=== PATIENT | male | born 1995 | race Caucasian/White ===

== ENCOUNTER → 2023-02-21 18:27 | Outpatient (CLI) | payer BC, SELFPAY ==
[2023-02-21 19:46] LABS: Influenza A - CEPHEID Flu A NEGATIVE (NEGATIVE); Influenza B - CEPHEID Flu B NEGATIVE (NEGATIVE); Respiratory Syncytial Virus Negative (Negative)
[2023-02-21 19:54] LABS: COVID-19 CEPHEID 4-PLEX PCR Negative (Negative)
== END ==
PROVIDERS: Visit Provider Student in an Organized Health Care Education/Training Program
DX: H92.09 Otalgia, unspecified ear (principal); R68.83 Chills (without fever)
CPT/HCPCS: 0241U

== ENCOUNTER 2023-02-23 09:46 | Emergency (ER) | payer BC, SELFPAY ==
[2023-02-23] VITALS (10 sets, daily range): BP systolic 117–159; BP diastolic 63–98; PULSE 84–99; RESP 20; TEMP 36.4; O2SAT 95–98; BMI 34.2
--- NOTE | 2023-02-23 09:51 | DI.CT.S_ITS ---
PROCEDURE: CT ABDOMEN PELVIS W CON INDICATIONS: Right upper quadrant abdominal pain TECHNIQUE: After the administration of IV contrast, axial sections were acquired from the lung bases to the pubic symphysis. Coronal and sagittal reformats were performed. For radiation dose reduction, the following was used: automated exposure control, adjustment of mA and/or kV according to patient size. COMPARISON: None. FINDINGS: Image quality: Excellent. Lung bases: Unremarkable. Small hiatal hernia. Heart: No significant findings. ABDOMEN: Liver: Normal size. Moderate hepatic steatosis. Gallbladder: Question gallbladder sludge. No radiopaque gallstones. Biliary ducts: Unremarkable. Pancreas: Unremarkable. Spleen: Unremarkable. Adrenal Glands: Unremarkable. Kidneys and Ureters: Unremarkable. Stomach and Bowel: Stomach, small bowel loops, and colon are normal in caliber. Normal appendix. Peritoneum: No abnormal intraperitoneal fluid. No free air. Ventral Wall: No hernia. Abdominal Nodes: There is a mildly enlarged periportal lymph node measuring 1.2 x 2.5 cm. No mesenteric adenopathy by size criteria. Vessels: Aorta and inferior vena cava are normal in size. PELVIS: Pelvic Organs: Unremarkable. Bladder: Unremarkable. Pelvic Nodes: No enlarged lymph nodes. Miscellaneous: No inguinal hernias are seen. Bones: Unremarkable. IMPRESSION: 1. Question gallbladder sludge. No radiopaque gallstones or CT findings to suggest acute cholecystitis. 2. Hepatic steatosis. 3. Mildly enlarged periportal lymph node, nonspecific. Dictated by: Jose Manuel Willoughby M.D. on 02/23/2023 at 10:43 Approved by: Jose Manuel Willoughby M.D. on 02/23/2023 at 10:51
--- NOTE | 2023-02-23 09:52 | ED.GENADULT ---
HPI - General Adult General Chief complaint: Abdominal Pain Stated complaint: ABD PAIN Time Seen by Provider: 02/23/23 09:47 Source: patient Mode of arrival: Ambulatory Limitations: no limitations History of Present Illness HPI narrative: Patient is a 28-year-old male who is sent over for the walk-in clinic for evaluation of right-sided abdominal pain. He states that he actually had upper respiratory tract infection like symptoms several days ago and was seen in the walk-in clinic. Was discharged home afterwards. Was not having abdominal pain since then. He states that for the past couple days he has had abdominal discomfort. Has not had a bowel movement in 2 days as well. No vomiting. No fevers. Does describe the pain on the right side of his abdomen. No urinary symptoms. Related Data Home Medications Medication Instructions Recorded Confirmed No Known Home Medications 02/21/23 02/21/23 Allergies Allergy/AdvReac Type Severity Reaction Status Date / Time ibuprofen [From Motrin] Allergy swelling Verified 02/23/23 09:51 to face Review of Systems Constitutional Constitutional: Reports system reviewed and no additional complaints, except as documented Cardiovascular Cardiovascular: Reports system reviewed and no additional complaints, except as documented Gastrointestinal Gastrointestinal: Reports system reviewed and no additional complaints, except as documented Genitourinary Genitourinary: Reports system reviewed and no additional complaints, except as documented Integumentary/Breasts Skin/Breast: Reports system reviewed and no additional complaints, except as documented Neurologic Neurologic: Reports system reviewed and no additional complaints, except as documented Hematologic/Lymphatic On Anticoagulants: No Patient History Social History Smoking Status: Never smoker Exam Initial Vital Signs Initial Vital Signs: Vital Signs Pulse Rate 86 02/23/23 10:02 Pulse Oximetry 95 02/23/23 10:02 Const General: cooperative, comfortable and No ill appearing [facility] Head: normal to inspection and normocephalic Resp Effort & Inspection: normal respiratory effort Cardio Rate: regular rate GI Inspection: normal to inspection Palpation: tender (Right lower quadrant) Skin General: no rashes or lesions noted Neuro General: patient alert, patient awake and moves all extremities Extrem General: normal to inspection and capillary refill normal Course Orders Ordered: ED Orders 02/23/23 09:51 CT abdomen pelvis w con Stat 02/23/23 10:05 Complete Blood Count AUTO DIFF Stat Comprehensive Metabolic Panel Stat Lipase Stat 02/23/23 11:00 US abdomen limited Stat Vital Signs Vital signs: Vital Signs - 8 hr 02/23/23 10:10 02/23/23 10:02 02/23/23 10:13 Temperature 97.6 F Pulse Rate 99 H 86 Respiratory Rate 20 Blood Pressure 159/98 H 146/90 H Pulse Oximetry 98 95 Oxygen Delivery Method Room Air 02/23/23 10:13 02/23/23 10:30 02/23/23 10:30 Temperature Pulse Rate 92 H 95 H Respiratory Rate Blood Pressure 141/88 H Pulse Oximetry 97 97 Oxygen Delivery Method 02/23/23 10:45 02/23/23 10:45 02/23/23 11:00 Temperature Pulse Rate 88 Respiratory Rate Blood Pressure 138/88 132/76 Pulse Oximetry 97 Oxygen Delivery Method 02/23/23 11:00 02/23/23 11:20 02/23/23 11:20 Temperature Pulse Rate 89 86 Respiratory Rate Blood Pressure 124/63 Pulse Oximetry 95 97 Oxygen Delivery Method 02/23/23 11:30 02/23/23 11:40 02/23/23 11:40 Temperature Pulse Rate 94 H 91 H Respiratory Rate Blood Pressure 125/82 Pulse Oximetry 95 96 Oxygen Delivery Method 02/23/23 12:00 02/23/23 12:00 Temperature Pulse Rate 84 Respiratory Rate Blood Pressure 117/64 Pulse Oximetry 96 Oxygen Delivery Method Medical Decision Making Medical Records Medical records reviewed: Yes I reviewed the patient's medical records. Lab Data Lab results reviewed: Yes I reviewed the patient's lab results. 02/23/23 10:05 02/23/23 10:05 Labs: Lab Results 02/23/23 02/23/23 Range/Units 10:05 10:05 WBC 8.5 (4.5-11.0) X10^3/uL RBC 5.79 (4.5-5.9) X10^6/uL Hgb 16.5 (13.5-17.5) g/dL Hct 46.4 (41-53) % MCV 80.1 (80-100) fL MCH 28.4 (26-34) PG MCHC 35.5 (30-36) % RDW 13.3 (11.6-14.8) % Plt Count 245 (150-400) X10^3/uL Neut % (Auto) 61.7 (50-75) % Lymph % (Auto) 26.5 (25-40) % [place] % (Auto) 6.5 (3-14) % Eos % (Auto) 4.1 H (2-4) % Baso % (Auto) 1.2 (0-2) % Neut # (Auto) 5200 (2480-7178) /uL Lymph # (Auto) 2200 (9258-2703) /uL [place] # (Auto) 500 (0-900) /uL Eos # (Auto) 400 (0-450) /uL Baso # (Auto) 100 (0-100) /uL Sodium 138 (137-145) mmol/L Potassium 4.0 (3.4-5.1) mmol/L Chloride 99 (98-107) mmol/L Carbon Dioxide 27 (22-32) mmol/L BUN 13 (9-20) mg/dL Creatinine 1.01 (0.66-1.25) mg/dL Estimated GFR > 60 (>60) mL/min BUN/Creatinine Ratio 12.9 (6-22) Glucose 111 H (70-100) mg/dL Calcium 10.4 H (8.4-10.2) mg/dL Total Bilirubin 1.6 H (0.2-1.3) mg/dL AST 69 H (17-59) IU/L ALT 119 H (<50) IU/L Alkaline Phosphatase 60 (38-126) U/L Total Protein 8.7 H (6.3-8.2) g/dL Albumin 5.1 H (3.5-5.0) g/dL Globulin 3.6 (1.7-4.1) g/dL Albumin/Globulin Ratio 1.4 (1.0-2.8) Lipase 123 (23-300) U/L Urine Dip Bedside Urine Glucose Negative Bedside Urine Bilirubin - Negative Bedside Urine Ketone - Negative Urine Specific [place] 1.010 Bedside Urine Occult Blood - Negative Bedside Urine pH 5.0 Bedside Urine Protein - Negative Bedside Urine Urobilinogen - Negative Bedside Urine Nitrite - Negative Bedside Urine Leukocytes - Negative Esterase Point of care testing: Urine Dip Bedside Urine Glucose Negative Bedside Urine Bilirubin - Negative Bedside Urine Ketone - Negative Urine Specific [place] 1.010 Bedside Urine Occult Blood - Negative Bedside Urine pH 5.0 Bedside Urine Protein - Negative Bedside Urine Urobilinogen - Negative Bedside Urine Nitrite - Negative Bedside Urine Leukocytes - Negative Esterase Imaging Data CT scan - abdomen/pelvis: Radiologist's Impression: PROCEDURE:? CT ABDOMEN PELVIS W CON ? INDICATIONS:? Right upper quadrant abdominal pain ? TECHNIQUE:? After the administration of IV contrast, axial sections were acquired from the lung bases to the pubic symphysis.? Coronal and sagittal reformats were performed.? For radiation dose reduction, the following was used:? automated exposure control, adjustment of mA and/or kV according to patient size. ? COMPARISON:? None. ? FINDINGS:? Image quality:? Excellent.? ? Lung bases:? Unremarkable.? Small hiatal hernia. ? Heart:? No significant findings. ? ? ABDOMEN: Liver:? Normal size.? Moderate hepatic steatosis.? ? Gallbladder:? Question gallbladder sludge.? No radiopaque gallstones.? ? Biliary ducts:? Unremarkable.? ? Pancreas:? Unremarkable.? ? Spleen:? Unremarkable.? ? Adrenal Glands:? Unremarkable.? ? Kidneys and Ureters:? Unremarkable.? ? ? Stomach and Bowel:? Stomach, small bowel loops, and colon are normal in caliber.? Normal appendix. Peritoneum:? No abnormal intraperitoneal fluid.? No free air.? ? Ventral Wall: ? No hernia.? Abdominal Nodes:? There is a mildly enlarged periportal lymph node measuring 1.2 x 2.5 cm.? No mesenteric adenopathy by size criteria.? Vessels:? Aorta and inferior vena cava are normal in size.? ? PELVIS: Pelvic Organs:? Unremarkable.? ? Bladder:? Unremarkable.? ? Pelvic Nodes: No enlarged lymph nodes.? Miscellaneous: No inguinal hernias are seen. ? ? ? Bones:? Unremarkable.? IMPRESSION:? ? 1. Question gallbladder sludge.? No radiopaque gallstones or CT findings to suggest acute cholecystitis. 2. Hepatic steatosis. 3. Mildly enlarged periportal lymph node, nonspecific. US - abdomen: Radiologist's Impression: PROCEDURE:? US ABDOMEN LIMITED ? INDICATIONS:? RUQ PAIN ? TECHNIQUE:? Real-time scanning was performed of the abdominal and retroperitoneal organs, with image documentation.? ? COMPARISON:? [facility], CT, CT ABDOMEN PELVIS W CON, 02/23/2023, 10:06. ? FINDINGS:? ? Liver:? Liver is normal in size and demonstrates diffuse increased echotexture.? Gallbladder:? No gallstones. No gallbladder wall thickening, pericholecystic fluid or sonographic Rod's sign.? Biliary ducts:? Intrahepatic bile ducts are non-dilated.? Extrahepatic bile duct caliber measures 3.9 mm.? Normal is 6-7 mm or less in diameter, or 10 mm or less post-cholecystectomy.? Pancreas:? Visualized portions of the pancreas are sonographically normal.? Miscellaneous:? No free abdominal fluid.? ? IMPRESSION:? ? 1.? Diffusely increased hepatic echotexture. This finding is most likely secondary to hepatic fatty infiltration although other hepatocellular disease may have a similar appearance. Recommend clinical correlation. 2. Normal gallbladder.? No gallstones.? No findings to suggest acute cholecystitis. Discharge Plan Departure Patient Disposition: Home Clinical Impression: Abdominal pain Instructions: DI for Abdominal Pain-Adult Activity Restrictions/Additional Instructions: I do recommend that you contact the general surgeons with the number provided below for a follow-up as you do have will be called ?sludge? in your gallbladder. I recommend that you start on a laxative like we discussed as well. Return to the emergency department for new or worsening symptoms. Prescriptions: No Action No Known Home Medications Referrals: Seth Molina MD [Physician] - Doctor Dominguez MD [Primary Care Provider] - Stand Alone Forms: Patient Portal/API
[2023-02-23 10:19] LABS: Add Manual Diff / Slide Review NO; Basophils Absolute Auto 100 /uL (0-100); Basophils Percent Auto 1.2 % (0-2); Eosinophils Absolute Auto 400 /uL (0-450); Eosinophils Percent Auto 4.1 % (2-4); Hematocrit 46.4 % (41-53); Hemoglobin 16.5 g/dL (13.5-17.5); Lymphocytes Absolute Auto 2200 /uL (1100-4500); Lymphocytes Percent Auto 26.5 % (25-40); Mean Corpuscular HGB Conc 35.5 % (30-36); Mean Corpuscular Hemoglobin 28.4 PG (26-34); Mean Corpuscular Volume 80.1 fL (80-100); Monocytes Absolute Auto 500 /uL (0-900); Monocytes Percent Auto 6.5 % (3-14); Neutrophils Absolute Auto 5200 /uL (1500-7000); Neutrophils Percent Auto 61.7 % (50-75); Platelet Count 245 X10^3/uL (150-400); Red Blood Cell Count 5.79 X10^6/uL (4.5-5.9); Red Cell Distribution Width 13.3 % (11.6-14.8); White Blood Cell Count 8.5 X10^3/uL (4.5-11.0)
[2023-02-23 10:41] LABS: Alanine Aminotransferase 119 IU/L (<50); Albumin 5.1 g/dL (3.5-5.0); Albumin Globulin Ratio 1.4 (1.0-2.8); Alkaline Phosphatase 60 U/L (38-126); Aspartate Aminotransferase 69 IU/L (17-59); BUN Creatinine Ratio 12.9 (6-22); Bilirubin Total 1.6 mg/dL (0.2-1.3); Blood Urea Nitrogen 13 mg/dL (9-20); Calcium 10.4 mg/dL (8.4-10.2); Carbon Dioxide 27 mmol/L (22-32); Chloride 99 mmol/L (98-107); Estimated Glomerular Filt Rate > 60 mL/min (>60); Globulin 3.6 g/dL (1.7-4.1); Glucose 111 mg/dL (70-100); HEMOLYSIS < 15 (0-50); Lipase 123 U/L (23-300); Sodium 138 mmol/L (137-145); Total Protein 8.7 g/dL (6.3-8.2)
--- NOTE | 2023-02-23 11:00 | DI.US.S_ITS ---
PROCEDURE: US ABDOMEN LIMITED INDICATIONS: RUQ PAIN TECHNIQUE: Real-time scanning was performed of the abdominal and retroperitoneal organs, with image documentation. COMPARISON: [facility], CT, CT ABDOMEN PELVIS W CON, 02/23/2023, 10:06. FINDINGS: Liver: Liver is normal in size and demonstrates diffuse increased echotexture. Gallbladder: No gallstones. No gallbladder wall thickening, pericholecystic fluid or sonographic Rod's sign. Biliary ducts: Intrahepatic bile ducts are non-dilated. Extrahepatic bile duct caliber measures 3.9 mm. Normal is 6-7 mm or less in diameter, or 10 mm or less post-cholecystectomy. Pancreas: Visualized portions of the pancreas are sonographically normal. Miscellaneous: No free abdominal fluid. IMPRESSION: 1. Diffusely increased hepatic echotexture. This finding is most likely secondary to hepatic fatty infiltration although other hepatocellular disease may have a similar appearance. Recommend clinical correlation. 2. Normal gallbladder. No gallstones. No findings to suggest acute cholecystitis. Dictated by: Jose Manuel Willoughby M.D. on 02/23/2023 at 11:49 Approved by: Jose Manuel Willoughby M.D. on 02/23/2023 at 11:51
== END 2023-02-23 12:19 | disposition home or self-care (01) ==
PROVIDERS: Emergency Provider Emergency Medicine
DX: R10.11 Right upper quadrant pain (principal)
CPT/HCPCS: 36415; 74177; 76705; 80053; 81003; 83690; 85025; 99283; 99284; Q9967